=== PATIENT | male | born 2000 | race Caucasian/White ===

== ENCOUNTER 2018-06-29 19:42 | Inpatient (IN) ==
[~2018-06-29 19:42] MED LIST: SUCCINYLCHOLINE CHLORIDE 20 MG/ML 10 ML VIAL IV ONE
[2018-06-29] MEDS ORDERED: SODIUM CHLORIDE 0.9% 1000ML 500 ML IV ONE (20:02)
[2018-06-29] MEDS ORDERED: ONDANSETRON INJ 2 MG/ML 2 ML VIAL IV STA (20:02)
--- NOTE | 2018-06-29 20:25 | Emergency Department Note ---
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 The RN reports that the patient was found unresponsive on the floor by a friend in the basement of the bar [employer]. The RN states that the patient had to be drug ou to meet EMS. Per RN, there was no rep orted trauma or vomiting. History limited secondary to presumed alcohol intoxication. Home Medications Home Medications Medication Instructions Recorded Confirmed Type Unobtainable 06/29/18 06/29/18 History Allergies Allergy/AdvReac Type Severity Reaction Status Date / Time Unable to Assess Allergy Unverified 06/29/18 22:33 Past Med/Surg History Medical History No significant past medical history Surgical History No significant past surgical history Family History Other Family history non-contributory Social History Current Living Situation: Other Current Living Situation Comment: college student current occupational status: student Smoking Status: Unknown if ever smoked Hx Alcohol Use: Yes (unable to answer how much) Review of Systems Other (HPI and ROS are both limited secondary to alcohol intoxication. ) Physical Exam Vital Signs Vital Signs - 24 hr 06/29/18 19:49 06/29/18 19:50 06/29/18 19:51 Temperature 37.0 C Temperature Source Oral Sepsis Recent Fever Within 48 Hours No Sepsis New/Unexplained Change in Mental Status No Sepsis Action Taken by Nursing No Action Required Pulse Rate 112 H 109 H 107 H Pulse Rate [Left Apical] Pulse Rate from SpO2 Sensor 225 H 220 H 219 H Pulse Rhythm Regular Pulse Rhythm [Left Apical] Pulse Strength Normal Pulse Strength [Left Apical] Respiratory Rate 17 31 H 17 Respiratory Effort / Characteristics Non-Labored Respiratory Depth Normal Respiratory Pattern Regular Blood Pressure 123/60 123/60 Blood Pressure [Left Arm] Blood Pressure Mean 81 81 Blood Pressure Mean [Left Arm] Blood Pressure Position Lying Blood Pressure Position [Left Arm] Pulse Oximetry 95 95 92 Pulse Oximetry [Right Index Finger] Oxygen Delivery Method Room Air Oxygen Delivery Method [Right Index Finger] Oxygen Flow Rate Fraction of Inspired Oxygen SaO2/FiO2 Ratio 06/29/18 19:55 06/29/18 20:00 06/29/18 20:04 Temperature Temperature Source Sepsis Recent Fever Within 48 Hours Sepsis New/Unexplained Change in Mental Status Sepsis Action Taken by Nursing Pulse Rate 106 H 111 H 110 H Pulse Rate [Left Apical] Pulse Rate from SpO2 Sensor 216 H 111 H Pulse Rhythm Regular Pulse Rhythm [Left Apical] Pulse Strength Pulse Strength [Left Apical] Respiratory Rate 12 11 L 20 Respiratory Effort / Characteristics Respiratory Depth Respiratory Pattern Blood Pressure Blood Pressure [Left Arm] Blood Pressure Mean Blood Pressure Mean [Left Arm] Blood Pressure Position Blood Pressure Position [Left Arm] Pulse Oximetry 94 96 99 Pulse Oximetry [Right Index Finger] Oxygen Delivery Method Nasal Cannula Oxygen Delivery Method [Right Index Finger] Oxygen Flow Rate 3 Fraction of Inspired Oxygen SaO2/FiO2 Ratio 06/29/18 20:05 06/29/18 20:10 06/29/18 20:15 Temperature Temperature Source Sepsis Recent Fever Within 48 Hours Sepsis New/Unexplained Change in Mental Status Sepsis Action Taken by Nursing Pulse Rate 122 H 119 H 118 H Pulse Rate [Left Apical] Pulse Rate from SpO2 Sensor 123 H 119 H 118 H Pulse Rhythm Pulse Rhythm [Left Apical] Pulse Strength Pulse Strength [Left Apical] Respiratory Rate 8 L 15 25 H Respiratory Effort / Characteristics Respiratory Depth Respiratory Pattern Blood Pressure Blood Pressure [Left Arm] Blood Pressure Mean Blood Pressure Mean [Left Arm] Blood Pressure Position Blood Pressure Position [Left Arm] Pulse Oximetry 89 L 92 94 Pulse Oximetry [Right Index Finger] Oxygen Delivery Method Oxygen Delivery Method [Right Index Finger] Oxygen Flow Rate Fraction of Inspired Oxygen SaO2/FiO2 Ratio 06/29/18 20:20 06/29/18 20:25 06/29/18 20:26 Temperature Temperature Source Sepsis Recent Fever Within 48 Hours Sepsis New/Unexplained Change in Mental Status Sepsis Action Taken by Nursing Pulse Rate 104 H 102 H 102 H Pulse Rate [Left Apical] Pulse Rate from SpO2 Sensor 102 H 102 H 102 H Pulse Rhythm Pulse Rhythm [Left Apical] Pulse Strength Pulse Strength [Left Apical] Respiratory Rate 23 22 22 Respiratory Effort / Characteristics Respiratory Depth Respiratory Pattern Blood Pressure 132/86 Blood Pressure [Left Arm] Blood Pressure Mean 101 Blood Pressure Mean [Left Arm] Blood Pressure Position Blood Pressure Position [Left Arm] Pulse Oximetry 96 98 96 Pulse Oximetry [Right Index Finger] Oxygen Delivery Method Oxygen Delivery Method [Right Index Finger] Oxygen Flow Rate Fraction of Inspired Oxygen SaO2/FiO2 Ratio 06/29/18 20:30 06/29/18 20:35 06/29/18 20:40 Temperature Temperature Source Sepsis Recent Fever Within 48 Hours Sepsis New/Unexplained Change in Mental Status Sepsis Action Taken by Nursing Pulse Rate 97 H 93 H 93 H Pulse Rate [Left Apical] Pulse Rate from SpO2 Sensor 98 H 93 H 93 H Pulse Rhythm Pulse Rhythm [Left Apical] Pulse Strength Pulse Strength [Left Apical] Respiratory Rate 10 L 9 L 18 Respiratory Effort / Characteristics Respiratory Depth Respiratory Pattern Blood Pressure Blood Pressure [Left Arm] Blood Pressure Mean Blood Pressure Mean [Left Arm] Blood Pressure Position Blood Pressure Position [Left Arm] Pulse Oximetry 99 99 100 Pulse Oximetry [Right Index Finger] Oxygen Delivery Method Oxygen Delivery Method [Right Index Finger] Oxygen Flow Rate Fraction of Inspired Oxygen SaO2/FiO2 Ratio 06/29/18 20:45 06/29/18 20:50 06/29/18 20:57 Temperature Temperature Source Sepsis Recent Fever Within 48 Hours Sepsis New/Unexplained Change in Mental Status Sepsis Action Taken by Nursing Pulse Rate 93 H 97 H Pulse Rate [Left Apical] Pulse Rate from SpO2 Sensor 94 H 96 H 99 H Pulse Rhythm Pulse Rhythm [Left Apical] Pulse Strength Pulse Strength [Left Apical] Respiratory Rate 24 21 20 Respiratory Effort / Characteristics Respiratory Depth Respiratory Pattern Blood Pressure Blood Pressure [Left Arm] Blood Pressure Mean Blood Pressure Mean [Left Arm] Blood Pressure Position Blood Pressure Position [Left Arm] Pulse Oximetry 100 98 98 Pulse Oximetry [Right Index Finger] Oxygen Delivery Method Oxygen Delivery Method [Right Index Finger] Oxygen Flow Rate Fraction of Inspired Oxygen SaO2/FiO2 Ratio 06/29/18 20:58 06/29/18 21:00 06/29/18 21:05 Temperature Temperature Source Sepsis Recent Fever Within 48 Hours Sepsis New/Unexplained Change in Mental Status Sepsis Action Taken by Nursing Pulse Rate 103 H 106 H Pulse Rate [Left Apical] Pulse Rate from SpO2 Sensor 102 H 99 H 106 H Pulse Rhythm Pulse Rhythm [Left Apical] Pulse Strength Pulse Strength [Left Apical] Respiratory Rate 14 16 Respiratory Effort / Characteristics Respiratory Depth Respiratory Pattern Blood Pressure 126/89 124/94 Blood Pressure [Left Arm] Blood Pressure Mean 101 104 Blood Pressure Mean [Left Arm] Blood Pressure Position Blood Pressure Position [Left Arm] Pulse Oximetry 100 100 98 Pulse Oximetry [Right Index Finger] Oxygen Delivery Method Oxygen Delivery Method [Right Index Finger] Oxygen Flow Rate Fraction of Inspired Oxygen SaO2/FiO2 Ratio 06/29/18 21:10 06/29/18 21:15 06/29/18 21:20 Temperature Temperature Source Sepsis Recent Fever Within 48 Hours Sepsis New/Unexplained Change in Mental Status Sepsis Action Taken by Nursing Pulse Rate 88 96 H 94 H Pulse Rate [Left Apical] Pulse Rate from SpO2 Sensor 87 95 H 98 H Pulse Rhythm Pulse Rhythm [Left Apical] Pulse Strength Pulse Strength [Left Apical] Respiratory Rate 14 14 20 Respiratory Effort / Characteristics Respiratory Depth Respiratory Pattern Blood Pressure 148/111 H Blood Pressure [Left Arm] Blood Pressure Mean 123 Blood Pressure Mean [Left Arm] Blood Pressure Position Blood Pressure Position [Left Arm] Pulse Oximetry 100 100 100 Pulse Oximetry [Right Index Finger] Oxygen Delivery Method Oxygen Delivery Method [Right Index Finger] Oxygen Flow Rate Fraction of Inspired Oxygen SaO2/FiO2 Ratio 06/29/18 21:25 06/29/18 21:43 06/29/18 21:45 Temperature Temperature Source Sepsis Recent Fever Within 48 Hours Sepsis New/Unexplained Change in Mental Status Sepsis Action Taken by Nursing Pulse Rate 90 Pulse Rate [Left Apical] Pulse Rate from SpO2 Sensor 90 87 Pulse Rhythm Pulse Rhythm [Left Apical] Pulse Strength Pulse Strength [Left Apical] Respiratory Rate 14 13 14 Respiratory Effort / Characteristics Respiratory Depth Respiratory Pattern Blood Pressure 133/89 127/90 Blood Pressure [Left Arm] Blood Pressure Mean 103 102 Blood Pressure Mean [Left Arm] Blood Pressure Position Blood Pressure Position [Left Arm] Pulse Oximetry 100 100 Pulse Oximetry [Right Index Finger] Oxygen Delivery Method Oxygen Delivery Method [Right Index Finger] Oxygen Flow Rate Fraction of Inspired Oxygen SaO2/FiO2 Ratio 06/29/18 21:50 06/29/18 21:51 06/29/18 21:55 Temperature Temperature Source Sepsis Recent Fever Within 48 Hours Sepsis New/Unexplained Change in Mental Status Sepsis Action Taken by Nursing Pulse Rate Pulse Rate [Left Apical] Pulse Rate from SpO2 Sensor 90 87 Pulse Rhythm Pulse Rhythm [Left Apical] Pulse Strength Pulse Strength [Left Apical] Respiratory Rate 21 14 14 Respiratory Effort / Characteristics Respiratory Depth Respiratory Pattern Blood Pressure 128/91 127/92 Blood Pressure [Left Arm] Blood Pressure Mean 103 103 Blood Pressure Mean [Left Arm] Blood Pressure Position Blood Pressure Position [Left Arm] Pulse Oximetry 100 100 Pulse Oximetry [Right Index Finger] Oxygen Delivery Method Oxygen Delivery Method [Right Index Finger] Oxygen Flow Rate Fraction of Inspired Oxygen 60 SaO2/FiO2 Ratio 06/29/18 22:00 06/29/18 22:05 06/29/18 22:10 Temperature Temperature Source Sepsis Recent Fever Within 48 Hours Sepsis New/Unexplained Change in Mental Status Sepsis Action Taken by Nursing Pulse Rate 97 H Pulse Rate [Left Apical] Pulse Rate from SpO2 Sensor 88 88 99 H Pulse Rhythm Pulse Rhythm [Left Apical] Pulse Strength Pulse Strength [Left Apical] Respiratory Rate 14 14 19 Respiratory Effort / Characteristics Respiratory Depth Respiratory Pattern Blood Pressure 129/96 132/96 138/99 Blood Pressure [Left Arm] Blood Pressure Mean 107 108 112 Blood Pressure Mean [Left Arm] Blood Pressure Position Blood Pressure Position [Left Arm] Pulse Oximetry 100 100 100 Pulse Oximetry [Right Index Finger] Oxygen Delivery Method Oxygen Delivery Method [Right Index Finger] Oxygen Flow Rate Fraction of Inspired Oxygen SaO2/FiO2 Ratio 06/29/18 22:15 06/29/18 22:20 06/29/18 22:25 Temperature Temperature Source Sepsis Recent Fever Within 48 Hours Sepsis New/Unexplained Change in Mental Status Sepsis Action Taken by Nursing Pulse Rate 89 88 Pulse Rate [Left Apical] Pulse Rate from SpO2 Sensor 89 88 Pulse Rhythm Pulse Rhythm [Left Apical] Pulse Strength Pulse Strength [Left Apical] Respiratory Rate 14 14 Respiratory Effort / Characteristics Respiratory Depth Respiratory Pattern Blood Pressure 139/94 135/88 Blood Pressure [Left Arm] Blood Pressure Mean 109 103 Blood Pressure Mean [Left Arm] Blood Pressure Position Blood Pressure Position [Left Arm] Pulse Oximetry 100 100 Pulse Oximetry [Right Index Finger] Oxygen Delivery Method Mechanical Vent Oxygen Delivery Method [Right Index Finger] Oxygen Flow Rate Fraction of Inspired Oxygen SaO2/FiO2 Ratio 06/29/18 22:28 06/29/18 22:45 06/29/18 23:08 Temperature 37.6 C H Temperature Source Oral Sepsis Recent Fever Within 48 Hours Sepsis New/Unexplained Change in Mental Status Sepsis Action Taken by Nursing Pulse Rate Pulse Rate [Left Apical] 93 H Pulse Rate from SpO2 Sensor Pulse Rhythm Pulse Rhythm [Left Apical] Regular Pulse Strength Pulse Strength [Left Apical] Normal Respiratory Rate 18 Respiratory Effort / Characteristics Mechanically Ventilated Respiratory Depth Normal Respiratory Pattern Regular Blood Pressure Blood Pressure [Left Arm] 152/86 H Blood Pressure Mean Blood Pressure Mean [Left Arm] 108 Blood Pressure Position Blood Pressure Position [Left Arm] Lying Pulse Oximetry 100 Pulse Oximetry [Right Index Finger] 100 Oxygen Delivery Method Mechanical Vent Oxygen Delivery Method [Right Index Finger] Mechanical Vent Oxygen Flow Rate Fraction of Inspired Oxygen 60 60 SaO2/FiO2 Ratio 166 06/29/18 23:23 06/29/18 23:24 06/29/18 23:50 Temperature Temperature Source Sepsis Recent Fever Within 48 Hours Sepsis New/Unexplained Change in Mental Status Sepsis Action Taken by Nursing Pulse Rate 94 H 107 H Pulse Rate [Left Apical] Pulse Rate from SpO2 Sensor Pulse Rhythm Pulse Rhythm [Left Apical] Pulse Strength Pulse Strength [Left Apical] Respiratory Rate 16 Respiratory Effort / Characteristics Mechanically Ventilated Respiratory Depth Respiratory Pattern Blood Pressure Blood Pressure [Left Arm] Blood Pressure Mean Blood Pressure Mean [Left Arm] Blood Pressure Position Blood Pressure Position [Left Arm] Pulse Oximetry 100 Pulse Oximetry [Right Index Finger] Oxygen Delivery Method Mechanical Vent Oxygen Delivery Method [Right Index Finger] Oxygen Flow Rate Fraction of Inspired Oxygen 60 30 SaO2/FiO2 Ratio GENERAL: Patient is in no acute distress. HEENT: No acute trauma, normocephalic atraumatic, mucous membranes moist, no nasal congestion, no scleral icterus. No scalp hematomas. PERRL. NECK: No stridor, no adenopathy, no meningismus, trachea is midline. LUNGS: Clear to auscultation bilaterally, no wheeze, no rhonchi, breath sounds equal. HEART: Tachycardic with a regular rhythm, no murmurs. ABDOMEN: Soft, nontender, bowel sounds positive, no hernias, no peritonitis. EXTREMITIES: No cyanosis or edema, full range of motion of all the joints without pain or difficulty, no signs for acute trauma. NEUROLOGIC: Somnolent, moves all extremities, responds to painful stimuli. Appears significantly intoxicated. SKIN: No rash, no jaundice, no diaphoresis. Procedures Free Text Procedures Endotracheal Intubation Indication: Alcohol Intoxication The patient was on 100% oxygen via NRB prior to the procedure. Suction, airway equipment, RSI drugs, respiratory equipment, and appropriate personnel were prepared prior to the initiation of the procedure. A time out was taken. Inducti on was performed with 150 mg succinylcholine. After observing the clinical benefit of the medications, the airway was easily visualized utilizing a Harrison 2 Blade. A 7.5 size ETT tube was placed atraumatically to 24 cm using standard technique. The cuff inflated without signs of malfunction. There were bilateral breath sounds, positive colormetric change, no gastric sounds and post procedure pulse oximetry was 100%. There were no complications. Course 1957: The patient was evaluated in room B7, and a limited history and physical examination were performed. 2055: The patient was intubated. 2118: I discussed the patient's case with Dr. Nj - [facility] Hospitalist. He will evaluate the patient for further management. 2140: I spoke with the patient's emergency contact, Chary Villa, who stated she was the patient's aunt and that she would be contacting the patient's mother. 2145: Dr. Nj discussed the patient's case with the ICU. They are aware and agreeable with the treatment plan. 2147: I discussed the patient's case with the patient's mother, Bambi. She is 4 hours away and is on her way. Administered Medications Potassium Chloride/Sodium Chloride (Normal Saline W/20 Meq Kcl) 20 meq in 1,000 mls @ 150 mls/hr IV .Q6H40M [facility] Stop: 07/29/18 21:44 Last Admin: 06/29/18 23:34 Dose: 150 mls/hr Documented by: [id number] Discontinued Medications Sodium Chloride (Nss 1000ml) 500 mls @ 999 mls/hr IV .Q31M ONE Stop: 06/29/18 20:32 Last Infusion: 06/29/18 23:00 Dose: 0 mls/hr Documented by: [id number] Admin: 06/29/18 20:25 Dose: 999 mls/hr Documented by: [id number] Propofol (Diprivan) 1,000 mg in 100 mls @ 0 mls/hr IV .Q0M JUAN; Protocol Stop: 07/02/18 22:29 Last Titration: 06/30/18 00:00 Dose: 30 mcg/kg/min, 16.2 mls/hr Documented by: [id number] Admin: 06/29/18 22:28 Dose: 20 mcg/kg/min, 10.8 mls/hr Documented by: [id number] Cosigned by: [id number] Miscellaneous () Confirm Administered Dose 1 ea .ROUTE .STK-MED ONE Stop: 06/29/18 20:57 Last Admin: 06/29/18 21:51 Dose: 1 ea Documented by: [id number] Ondansetron HCl (Zofran) 4 mg IV NOW STA Stop: 06/29/18 20:03 Last Admin: 06/29/18 20:25 Dose: 4 mg Documented by: [id number] Propofol (Diprivan) Confirm Administered Dose 200 mg IV .STK-MED ONE Stop: 06/29/18 22:13 Last Admin: 06/29/18 22:28 Dose: Not Given Documented by: [id number] Propofol (Diprivan) Confirm Administered Dose 1,000 mg IV .STK-MED ONE Stop: 06/29/18 22:13 Last Admin: 06/29/18 23:10 Dose: Not Given Documented by: [id number] Propofol (Diprivan) 40 mg IV NOW STA Stop: 06/29/18 22:21 Last Admin: 06/29/18 22:28 Dose: 40 mg Documented by: [id number] Cosigned by: [id number] Succinylcholine Chloride (Quelicin) 150 mg IV NOW STA Stop: 06/29/18 21:10 Last Admin: 06/29/18 21:51 Dose: 150 mg Documented by: [id number] Medical Decision Making Differential Diagnosis Differential diagnosis includes: alcohol overdose, alcohol abuse, aspiration, drug abuse, head trauma, dehydration, and electrolyte imbalance. Medical Records Attestation: I reviewed the patient's medical records. Home Medications Current Medication List: was personally reviewed by me Laboratory Data Attestation: I reviewed the patient's lab results. Result diagrams: 06/29/18 20:13 06/29/18 20:13 Lab Results 06/29/18 06/29/18 06/29/18 Range/Units 20:13 20:13 20:13 WBC 7.89 (4.8-10.8) K/uL RBC 4.85 (4.7-6.1) M/uL Hgb 15.0 (14.0-18.0) g/dL Hct 41.8 L (42-52) % MCV 86.2 (80-100) fL MCH 30.9 (25-34) pg MCHC 35.9 (32-36) g/dL RDW Std Deviation 40.3 (36.4-46.3) fL RDW Coeff of Sumanth 12.8 (11.5-14.5) % Plt Count 232 (130-400) K/uL MPV 9.7 (7.4-10.4) fL Sodium 141 (136-145) mmol/L Potassium 3.5 (3.5-5.1) mmol/L Chloride 112 H (98-107) mmol/L Carbon Dioxide 23 (21-32) mmol/L Anion Gap 6.0 (3-11) BUN 12 (7-18) mg/dl Creatinine 0.99 (0.6-1.4) mg/dl Est Cr Clr Drug Dosing 134.3 ml/min Est GFR ( Amer) 126.5 Est GFR (Non-Af Amer) 109.2 BUN/Creatinine Ratio 12.4 (10-20) Glucose 125 H (70-99) mg/dl POC Glucose (70-99) Calcium 8.9 (8.5-10.1) mg/dl Total Bilirubin 0.5 (0.2-1) mg/dl AST 20 (15-37) U/L ALT 29 (12-78) U/L Alkaline Phosphatase 69 (45-117) U/L Total Protein 8.0 (6.4-8.2) gm/dl Albumin 4.2 (3.4-5.0) gm/dl Globulin 3.8 (2.5-4.0) gm/dl Albumin/Globulin Ratio 1.1 (0.9-2) Urine Opiates Screen (Neg) Ur Methadone, Qual (Neg) Urine Barbiturates (Neg) Ur Phencyclidine (PCP) (Neg) U Amphetamin/Meth Scrn (Neg) MDMA (Ecstasy) Screen (Neg) U Benzodiazepines Scrn (Neg) Ur Cocaine Metabolite (Neg) U Marijuana (THC) Screen (Neg) Ethyl Alcohol mg/dL 456.0 H (0-3) mg/dl 06/29/18 06/29/18 Range/Units 21:30 23:36 WBC (4.8-10.8) K/uL RBC (4.7-6.1) M/uL Hgb (14.0-18.0) g/dL Hct (42-52) % MCV (80-100) fL MCH (25-34) pg MCHC (32-36) g/dL RDW Std Deviation (36.4-46.3) fL RDW Coeff of Sumanth (11.5-14.5) % Plt Count (130-400) K/uL MPV (7.4-10.4) fL Sodium (136-145) mmol/L Potassium (3.5-5.1) mmol/L Chloride (98-107) mmol/L Carbon Dioxide (21-32) mmol/L Anion Gap (3-11) BUN (7-18) mg/dl Creatinine (0.6-1.4) mg/dl Est Cr Clr Drug Dosing ml/min Est GFR ( Amer) Est GFR (Non-Af Amer) BUN/Creatinine Ratio (10-20) Glucose (70-99) mg/dl POC Glucose 110 H (70-99) Calcium (8.5-10.1) mg/dl Total Bilirubin (0.2-1) mg/dl AST (15-37) U/L ALT (12-78) U/L Alkaline Phosphatase (45-117) U/L Total Protein (6.4-8.2) gm/dl Albumin (3.4-5.0) gm/dl Globulin (2.5-4.0) gm/dl Albumin/Globulin Ratio (0.9-2) Urine Opiates Screen Neg (Neg) Ur Methadone, Qual Neg (Neg) Urine Barbiturates Neg (Neg) Ur Phencyclidine (PCP) Neg (Neg) U Amphetamin/Meth Scrn Neg (Neg) MDMA (Ecstasy) Screen Neg (Neg) U Benzodiazepines Scrn Neg (Neg) Ur Cocaine Metabolite Neg (Neg) U Marijuana (THC) Screen Neg (Neg) Ethyl Alcohol mg/dL (0-3) mg/dl Imaging Data Radiologist's Impression: Radiology results as stated below per my review and the radiologist's interpretation: XR chest 1V portable CLINICAL HISTORY: Respiratory failure COMPARISON STUDY: None FINDINGS: There is a nasogastric tube within the stomach. There is an endotracheal tube 32 mm above the rashaad. The heart is normal in size. There is no focal pulmonary consolidation. There are no pleural effusions.[ IMPRESSION: 1. Endotracheal tube 32 mm above the rashaad 2. Nasogastric tube in stomach 3. No evidence of focal pulmonary consolidation Electronically signed by: Konrad Hoover M.D. 06/29/2018 9:[address] head/brain wo con CLINICAL HISTORY: confusion PATIENT FOUND UNRESPONSIVE. COMPARISON STUDY: No previous studies for comparison. TECHNIQUE: Axial CT of the brain is performed from the vertex to the skull base. IV contrast was not administered for this examination. A dose lowering technique was utilized adhering to the principles of ALARA. CT DOSE: 614.27 mGy.cm FINDINGS: No intra or extra-axial mass lesions are visualized. There is no CT evidence of acute cortical infarction. There is no evidence of midline shift. There is no acute hemorrhage. No calvarial fractures are visualized. There are patchy white matter hypodensities likely on a small vessel basis. There is no evidence of pathologic ventricular dilatation. There is a right maxilla sinus inflammatory polyp/retention cyst. IMPRESSION: No acute intracranial findings Electronically signed by: Konrad Hoover M.D. 06/29/2018 9:43 PM Blood Pressure Blood Pressure Findings: Normal blood pressure Blood Pressure Disposition: did not require urgent referral MDM Narrative There is no leukocytosis or concerning anemia. No significant electrolyte abnormality, kidney failure or hepatitis. Urine tox was negative. Alcohol level returned quite elevated at 456. Brain CT shows no acute bleed or mass- effect. The patient presented for an alcohol overdose. Initially, he was responsive to deep painful stimuli. Over a very short timeframe though, he became more sedate, he required nasal cannula O2 supplementation because of hypoxia, he no longer would respond to deep painful stimuli and I could no longer find a gag reflex. He was felt in need of intubation to protect his airway and to prevent hypoxia. Patient was intubated as noted above, there were no complications. Eventually, a propofol drip was started. Chest film was done showing the endotracheal tube to be in good position. The lungs were clear. An orogastric tube was placed. To monitor urine output, a Adames catheter was placed. I did speak to the patient's aunt and then to the patient's mother over the phone. They are aware of the situation, the mother is on the way to this hospital, she lives in [place]. The patient is in need of a hospital stay, he will be admitted to the ICU. I did speak to the on-call hospitalist as well as case management. The ICU is awaiting the patient's arrival. His presentation appears to be consistent with an alcohol overdose. Impression & Plan Alcohol overdose, Respiratory failure Critical Care Time I have personally spent 45 minutes of critical care time in the direct management of this patient. This includes bedside care, interpretation of diagnostic studies, and testing, discussion with consultants, patient, and family members, and other required patient management activities. These 45 minutes is in excess of all separately billable procedures. Critical Care Time: Yes Total Critical Care Time: 45 Discharge Plan Visit Data *Final* Discharge Date/Time: 06/29/18 22:25 Chief Complaint: Alcohol Intoxication Stated Complaint: ETOH ED Provider: Elpidio Ramirez Discharge Problem: Alcohol overdose, Respiratory failure Patient Disposition: Admitted As Inpatient Discharge Instructions Interventions: ED Discharge Assessment Last Done: 06/29/18 22:25 Discharge Problem: Alcohol overdose Qualifiers: Encounter type: initial encounter Injury intent: undetermined intent Qualified Code(s): T51.94XA - Toxic effect of unspecified alcohol, undetermined, initial encounter Respiratory failure Qualifiers: Chronicity: acute Respiratory failure complication: hypoxia Qualified Code(s): J96.01 - Acute respiratory failure with hypoxia The scribe's documentation has been prepared under my direction and personally reviewed by me in its entirety. I confirm that the note above accurately reflects all work, treatment, procedures, and medical decision making performed by me.
[2018-06-29 20:42] LABS: Albumin Level 4.2 gm/dl (3.4-5.0); BUN Creatinine Ratio 12.4 (10-20); Calcium 8.9 mg/dl (8.5-10.1); Creatinine Clr Calc Pharmacy 134.3 ml/min; Est GFR (African American) 126.5; Est GFR (Non-African American) 109.2; Potassium 3.5 mmol/L (3.5-5.1)
[2018-06-29 20:45] LABS: Albumin Globulin Ratio 1.1 (0.9-2); Bilirubin,Total 0.5 mg/dl (0.2-1); Globulin 3.8 gm/dl (2.5-4.0)
[2018-06-29] MEDS ORDERED: RAPID SEQUENCE INDUCTION BAG ONE (20:56)
[2018-06-29] MEDS ORDERED: SUCCINYLCHOLINE CHLORIDE 20 MG/ML 10 ML VIAL IV STA (21:09)
[2018-06-29 21:20] LABS: Hematocrit (blood only) 41.8 % (42-52); Mean Corpuscular Hgb Conc 35.9 g/dL (32-36); Mean Corpuscular Volume 86.2 fL (80-100); Mean Platelet Volume 9.7 fL (7.4-10.4); Platelet Count 232 K/uL (130-400); RDW Coefficient of Variation 12.8 % (11.5-14.5); RDW Standard Deviation 40.3 fL (36.4-46.3); Red Blood Count 4.85 M/uL (4.7-6.1); White Blood Count 7.89 K/uL (4.8-10.8)
--- NOTE | 2018-06-29 21:31 | XRay Report ---
XR chest 1V portable CLINICAL HISTORY: Respiratory failure COMPARISON STUDY: None FINDINGS: There is a nasogastric tube within the stomach. There is an endotracheal tube 32 mm above t he rashaad. The heart is normal in size. There is no focal pulmonary consolidation. There are no pleur al effusions.[ IMPRESSION: 1. Endotracheal tube 32 mm above the rashaad 2. Nasogastric tube in stomach 3. No evidence of focal pulmonary consolidation Electronically signed by: Konrad Hoover M.D. 06/29/2018 9:30 PM
--- NOTE | 2018-06-29 21:40 | History & Physical Report ---
Date of Service June 29, 2018 Assessment & Plan (1) Admitted to intensive care unit: Patient was electively intubated in the ED due to concerns regarding his ability to maintain his airway due to severe alcohol intoxication/overdose. Admit to the intensive care unit. CBC with differential, chemistry profile reviewed and normal. Urine drug screen negative. Alcohol level 456, with normal range 0-3. Ventilator settings AC 16/5 100/60%/PEEP 5. Check ABG upon arrival to ICU. Nasogastric tube inserted maintained. Propofol for IV sedation. NSS + KCl 20 mEq at 150 mL's per hour. Famotidine 20 mg IV every 12 hours. Zofran 4 mg IV every 6 hours as needed. Serial CBC with differential, chemistry profile, magnesium level, ABG. Consult [employer] senior specialist Dr. Andrea. Present on Admission?: Yes (2) Airway compromise: As above. Present on Admission?: Yes (3) Alcohol overdose: Initial alcohol level noted to be 456.0. Repeat in a.m. Present on Admission?: Yes History of Present Illness Chief Complaint: The patient presented to the emergency department via EMS after being found unresponsive by a friend in the basement of the bar [employer]. The patient himself as noted is unresponsive, and therefore his HPI and review of systems is severely limited to that supplied by his friend and EMS. Primary Care Provider: NO PCP As noted above, the patient presented to the emergency department via EMS after being found unresponsive in a bar. His alcohol level was 456, and as it became apparent that the patient was not going to be able to protect his airway, he was electively intubated by Dr. Ramirez in the ED for airway protection. Allergies Allergy/AdvReac Type Severity Reaction Status Date / Time Unable to Assess Allergy Unverified 06/29/18 22:33 Home Medications Home Medications Medication Instructions Recorded Confirmed Type Unobtainable 06/29/18 06/29/18 History Past Med/Surg History Medical History No significant past medical history Surgical History No significant past surgical history Family History Other Family history non-contributory Social History current occupational status: student Smoking Status: Unknown if ever smoked Hx Alcohol Use: Yes Review of Systems Review of Systems: Limited due to patient's unresponsive state Physical Exam Physical Exam: The patient is presently intubated and nonresponsive. Normo cephalic and atraumatic, lying in bed. HEENT--PERRL, EOMI, mucous membranes and oropharynx dry. Neck-- No JVD. No bruits. Thyroid normal, trachea midline, no adenopathy. Heart--normal S1 and S2. No murmurs, rubs or gallops. Lungs--few coarse breath sounds bilaterally. On ventilator. Abdomen--normal bowel sounds and soft. Nontender. Nondistended, no hernias or masses, no organomegaly. Extremities--no cyanosis or clubbing. No edema. There are good distal pulses b/l. Dermatologic--normal skin turgor, normal color, no abnormal lymph nodes, no rash. Neurologic--deferred. Rheumatologic-deferred Psychiatric--deferred Results & Data Vital Signs (Past 12 Hours) Vital Signs Temp Pulse Resp BP Pulse Ox 06/29/18 20:04 110 H 20 99 06/29/18 19:50 37.0 C 102 H 12 123/60 95 Laboratory Results Laboratory Results WBC 7.89 K/uL (4.8-10.8) 06/29/18 20:13 RBC 4.85 M/uL (4.7-6.1) 06/29/18 20:13 Hgb 15.0 g/dL (14.0-18.0) 06/29/18 20:13 Hct 41.8 % (42-52) L 06/29/18 20:13 MCV 86.2 fL (80-100) 06/29/18 20:13 MCH 30.9 pg (25-34) 06/29/18 20:13 MCHC 35.9 g/dL (32-36) 06/29/18 20:13 RDW Std Deviation 40.3 fL (36.4-46.3) 06/29/18 20:13 RDW Coeff of Sumanth 12.8 % (11.5-14.5) 06/29/18 20:13 Plt Count 232 K/uL (130-400) 06/29/18 20:13 MPV 9.7 fL (7.4-10.4) 06/29/18 20:13 Sodium 141 mmol/L (136-145) 06/29/18 20:13 Potassium 3.5 mmol/L (3.5-5.1) 06/29/18 20:13 Chloride 112 mmol/L (98-107) H 06/29/18 20:13 Carbon Dioxide 23 mmol/L (21-32) 06/29/18 20:13 Anion Gap 6.0 (3-11) 06/29/18 20:13 BUN 12 mg/dl (7-18) 06/29/18 20:13 Creatinine 0.99 mg/dl (0.6-1.4) 06/29/18 20:13 Est Cr Clr Drug Dosing 134.3 ml/min 06/29/18 20:13 Est GFR ( Amer) 126.5 06/29/18 20:13 Est GFR (Non-Af Amer) 109.2 06/29/18 20:13 BUN/Creatinine Ratio 12.4 (10-20) 06/29/18 20:13 Glucose 125 mg/dl (70-99) H 06/29/18 20:13 Calcium 8.9 mg/dl (8.5-10.1) 06/29/18 20:13 Total Bilirubin 0.5 mg/dl (0.2-1) 06/29/18 20:13 AST 20 U/L (15-37) 06/29/18 20:13 ALT 29 U/L (12-78) 06/29/18 20:13 Alkaline Phosphatase 69 U/L (45-117) 06/29/18 20:13 Total Protein 8.0 gm/dl (6.4-8.2) 06/29/18 20:13 Albumin 4.2 gm/dl (3.4-5.0) 06/29/18 20:13 Globulin 3.8 gm/dl (2.5-4.0) 06/29/18 20:13 Albumin/Globulin Ratio 1.1 (0.9-2) 06/29/18 20:13 Urine Opiates Screen Neg (Neg) 06/29/18 21:30 Ur Methadone, Qual Neg (Neg) 06/29/18 21:30 Urine Barbiturates Neg (Neg) 06/29/18 21:30 Ur Phencyclidine (PCP) Neg (Neg) 06/29/18 21:30 U Amphetamin/Meth Scrn Neg (Neg) 06/29/18 21:30 MDMA (Ecstasy) Screen Neg (Neg) 06/29/18 21:30 U Benzodiazepines Scrn Neg (Neg) 06/29/18 21:30 Ur Cocaine Metabolite Neg (Neg) 06/29/18 21:30 U Marijuana (THC) Screen Neg (Neg) 06/29/18 21:30 Ethyl Alcohol mg/dL 456.0 mg/dl (0-3) H 06/29/18 20:13 Diagnostic Findings [facility], [place] [phone] CT Scan Report Patient: Karlene REINA Date: 06/29/18 MR#: [id number]: 4 [facility] Acct ID:[id number]: Date: 2000[facility] Zip: [place] [address] Age: 18Location: ED Sex: M Room/Bed: Att Phy: Diagnosis: ETOH Yolanda Phy: PCP,NO Service Date: 06/29/18 Fam Phy: Interpreting Phy: Konrad Hoover MD Admit Phy: Ordering Phy: Elpidio Ramirez M.D. cc: ~ CT head/brain wo con CLINICAL HISTORY: confusion PATIENT FOUND UNRESPONSIVE. COMPARISON STUDY: No previous studies for comparison. TECHNIQUE: Axial CT of the brain is performed from the vertex to the skull base. IV contrast was not administered for this examination. A dose lowering technique was utilized adhering to the principles of ALARA. CT DOSE: 614.27 mGy.cm FINDINGS: No intra or extra-axial mass lesions are visualized. There is no CT evidence of acute cortical infarction. There is no evidence of midline shift. There is no acute hemorrhage. No calvarial fractures are visualized. There are patchy white matter hypodensities likely on a small vessel basis. There is no evidence of pathologic ventricular dilatation. There is a right maxilla sinus inflammatory polyp/retention cyst. IMPRESSION: No acute intracranial findings Electronically signed by: Konrad Hoover M.D. 06/29/2018 9:43 PM Dictated: 06/29/182141 Transcribed: 06/29/182141 [phone] XRay Report Patient: Hilton REINAit Date: 06/29/18 MR#: [id number]: Timothy4 OSBALDO ALAS Acct ID:[id number]: Date: 2000City Zip: [place] [address] Age: 18Location: ED Sex: M Room/Bed: Att Phy: Diagnosis: ETOH Yolanda Phy: PCP,NO Service Date: 06/29/18 Fam Phy: Interpreting Phy: Konrad Hoover MD Admit Phy: Ordering Phy: Elpidio Ramirez M.D. cc: ~ XR chest 1V portable CLINICAL HISTORY: Respiratory failure COMPARISON STUDY: None FINDINGS: There is a nasogastric tube within the stomach. There is an endotracheal tube 32 mm above the rashaad. The heart is normal in size. There is no focal pulmonary consolidation. There are no pleural effusions.[ IMPRESSION: 1. Endotracheal tube 32 mm above the rashaad 2. Nasogastric tube in stomach 3. No evidence of focal pulmonary consolidation Electronically signed by: Konrad Hoover M.D. 06/29/2018 9:30 PM Dictated: 06/29/182127 Transcribed: 06/29/182127 Code Status & VTE Plan Code Status Full code VTE Prophylaxis Plan VTE Prophylaxis will be ordered: Yes Critical Care Time Total critical care time was 45 minutes Critical Care Time: Yes Total Critical Care Time: 45 (1) Alcohol overdose Encounter type: initial encounter Injury intent: undetermined intent Qualified Code(s): T51.94XA - Toxic effect of unspecified alcohol, undetermined, initial encounter
[2018-06-29] MEDS ORDERED: NSS + 20MEQ KCL 20 MEQ/1,000 ML BAG IV SCH (21:45)
--- NOTE | 2018-06-29 21:45 | CT Scan Report ---
CT head/brain wo con CLINICAL HISTORY: confusion PATIENT FOUND UNRESPONSIVE. COMPARISON STUDY: No previous studies for comparison. TECHNIQUE: Axial CT of the brain is performed from the vertex to the skull base. IV contrast was not administered for this examination. A dose lowering technique was utilized adhering to the principles of ALARA. CT DOSE: 614.27 mGy.cm FINDINGS: No intra or extra-axial mass lesions are visualized. There is no CT evidence of acute cortical infarc tion. There is no evidence of midline shift. There is no acute hemorrhage. No calvarial fractures ar e visualized. There are patchy white matter hypodensities likely on a small vessel basis. There is no evidence of pathologic ventricular dilatation. There is a right maxilla sinus inflammatory polyp/retention cyst. IMPRESSION: No acute intracranial findings Electronically signed by: Konrad Hoover M.D. 06/29/2018 9:43 PM
[2018-06-29] MEDS ORDERED: PROPOFOL IV EMULSION 10 MG/ML 100 ML VIAL IV ONE (22:12)
[2018-06-29] MEDS ORDERED: PROPOFOL IV EMULSION 10 MG/ML 20 ML VIAL IV ONE (22:12)
[2018-06-29] MEDS ORDERED: PROPOFOL IV EMULSION 10 MG/ML 20 ML VIAL IV STA (22:20)
[2018-06-29] MEDS ORDERED: PROPOFOL 1,000 MG/100 ML VIAL IV SCH (22:30)
[2018-06-29 22:33] LABS: Amphetamines+Metham, Urine Neg (Neg); Barbiturates, Urine Neg (Neg); Benzodiazepine, Urine Neg (Neg); Cocaine, Urine Neg (Neg); MDMA (Ecstacy), Urine Neg (Neg); Methadone, Urine Neg (Neg); Opiate, Urine Neg (Neg); Phencyclidine, Urine Neg (Neg)
[2018-06-29] MEDS ORDERED: ICU PROTOCOL FOR HYPERGLYCEMIA PRN (23:08)
[2018-06-29] MEDS ORDERED: ALBUT/IPRATROP 3MG/0.5MG NEB 3 ML VIAL INH PRN (23:08)
--- NOTE | 2018-06-29 23:11 | Critical Care Consultation ---
Date of Consultation June 29, 2018 Assessment & Plan (1) Admitted to intensive care unit: Reason Critically Ill: 18-year-old male with acute alcohol overdose requiring endotracheal intubation for airway protection in the setting of respiratory depression. NEURO - * CAM ICU: Unable to assess secondary to current state of sedation. * Alcohol overdose/Unconscious State: * Initial EtOH in the ED of 456.0 mg/dL --> Will recheck to assess for clearance prior to lightening sedation for planned early extubation. * CT Head WNL. * UDS w/o other significant findings. * No focal neurological deficits appreciated on exam, however limited by EtOH/Sedation. CARDIAC/VASCULAR - * No known h/o Cardiovascular disease. * EKG: NSR @89bpm w/o ST/T-wave changes. QTc 445ms. * Monitor on telemetry. RESPIRATORY - * Acute Respiratory Failure requiring endotracheal intubation: * 2/2 respiratory depression from EtOH. * No infiltrative changes noted on post intubation CXR. * No need for Abx coverage at this point. * Will repeat AM CXR p/t extubation for any changes. * AM ABG w/ ABGs as needed for any acute changes. GI/NUTRITION - * NPO * OG in place * Prophylaxis: Famotidine RENAL/LYTES - * No significant electrolyte abnormalities appreciated. * Will trend - replace appropriately. * IVF: NSS+20mEq KCl@150mL/hr * Will change to Normosol after repeat BMP. - * Adames in place - Strict I&Os. ENDO - * No h/o DM or Thyroid Dz * BSGs per unit protocol. ISS --> gtt per unit policy. HEME - * Stable H&H ID - * No c/o infectious contribution at this time. LINES/IV ACCESS - * PIVs x2 * Adames * ET Tube DVT PROPHYLAXIS - * Lovenox * SCDs I have personally spent 35 minutes of critical care time in the direct management of this patient. This is a life/limb threatening event. This includes time spent evaluating patient, direct bedside care, chart review, placing orders, interpretation of diagnostic studies, discussion with consultants, patient, and family members, as well as other required patient management activities. This time is exclusive of all separately billable procedures, and teaching time and separate from and in addition to any other critical care service time. Thank you for allowing us to participate in the care of this patient. Please refer to my attending physician's documentation for any further recommendations. (2) Airway compromise: (3) Alcohol overdose: (4) Respiratory failure: (5) No significant past medical history: Supervising Physician Co-Signing Physician Notes I have personally evaluated and examined this patient. I agree with assessment and plan of Stephen Gomez PA-C. Severe alcohol intoxication leading to profound altered mental status requiring intubation to protect from aspiration. History of Present Illness Attending Physician: Bubba Nj MD History of present illness limited secondary to patient's current state of alcohol intoxication with need for endotracheal intubation for airway protect ion. 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 Apparently, he was found unconscious at a bar where he was out with friends. EMS was contacted and the patient was subsequently brought to the emergency department for acute alcohol intoxication. Throughout stay in the emergency department, the patient became more obtunded and required emergent endotracheal intubation. Patient's labs were otherwise unremarkable except for a medical alcohol of 456. Patient was intubated with succinylcholine alone. He was started on a propofol drip for sedation. Upon arrival in the ICU, the patient is pleasantly sedated. Unable to contribute to conversation. Allergies Allergy/AdvReac Type Severity Reaction Status Date / Time No Known Allergies Allergy Unverified 06/30/18 02:46 Home Medications Home Medications Medication Instructions Recorded Confirmed Type Unobtainable 06/29/18 06/29/18 History ondansetron HCl [Zofran] 4 mg PO ONCE PRN 4 Days #4 tab 06/30/18 Rx Patient History Medical History No significant past medical history Surgical History No significant past surgical history Family History Other Family history non-contributory Social History Communication Ability: Unable Current Living Situation: Other Current Living Situation Comment: college student current occupational status: student Smoking Status: Unknown if ever smoked Hx Alcohol Use: Yes (unable to answer how much) Review of Systems Review of Systems: Unable to assess secondary to current state of alcohol intoxication, sedation, and endotracheal intubation. Physical Exam Physical Exam: VITAL SIGNS - Vital signs and nursing notes were reviewed. GENERAL - 18-year-old male appearing his stated age who is in no acute distress. Intubated and sedated. SKIN - Without rashes. No outward signs of trauma. HEAD - NC/AT. EYES - PERRL with EOMI bilaterally. Sclera anicteric. Palpebral conjunctiva pink and moist with no injection noted. EARS - No deformities of external structures noted on gross examination bilaterally. NOSE - Midline and without cyanosis. Dried epistaxis noted to the nares bilaterally. MOUTH/OROPHARYNX - Endotracheally intubated. Without perioral cyanosis. Buccal mucosa pink and moist and without leukoplakia. Good dentition noted. NECK - Neck with FROM. Supple to palpation. No lymphadenopathy noted. No nuchal rigidity. LUNGS - Chest wall symmetric without accessory muscle use, intercostals retractions, or central cyanosis. Normal vesicular breath sounds CTA B/L. No wheezes, rales, or rhonchi appreciated. CARDIAC - RRR with S1/S2. No murmur, rubs, or gallops appreciated. ABDOMEN - Abdominal contour flat without pulsations or visible masses. BS normoactive all four quadrants. No tenderness, palpable masses, hepatosplenomegaly, or ascites noted. EXTREMITIES - No clubbing or peripheral cyanosis. No pretibial edema present. +3/5 radial, posterior tibial, and dorsalis pedis pulses palpated throughout. NEUROLOGIC - Cranial nerves II through XII grossly intact. Unable to fully assess secondary to current state. Results & Data Vital Signs (Past 12 Hours) Vital Signs Temp Pulse Resp BP Pulse Ox 06/29/18 22:20 88 14 135/88 100 06/29/18 22:15 89 14 139/94 100 06/29/18 22:10 97 H 19 138/99 100 06/29/18 22:05 14 132/96 100 06/29/18 22:00 14 129/96 100 06/29/18 21:55 14 127/92 100 06/29/18 21:51 14 06/29/18 21:50 21 128/91 100 06/29/18 21:45 14 127/90 100 06/29/18 21:43 13 06/29/18 21:25 90 14 133/89 100 06/29/18 21:20 94 H 20 100 06/29/18 21:15 96 H 14 148/111 H 100 06/29/18 21:10 88 14 100 06/29/18 21:05 106 H 16 98 06/29/18 21:00 124/94 100 06/29/18 20:58 103 H 14 126/89 100 06/29/18 20:57 20 98 06/29/18 20:50 97 H 21 98 06/29/18 20:45 93 H 24 100 06/29/18 20:40 93 H 18 100 06/29/18 20:35 93 H 9 L 99 06/29/18 20:30 97 H 10 L 99 06/29/18 20:26 102 H 22 132/86 96 06/29/18 20:25 102 H 22 98 06/29/18 20:20 104 H 23 96 06/29/18 20:15 118 H 25 H 94 06/29/18 20:10 119 H 15 92 06/29/18 20:05 122 H 8 L 89 L 06/29/18 20:04 110 H 20 99 06/29/18 20:00 111 H 11 L 96 06/29/18 19:55 106 H 12 94 06/29/18 19:51 107 H 17 123/60 92 06/29/18 19:50 37.0 C 109 H 31 H 123/60 95 06/29/18 19:49 112 H 17 95 (1) Alcohol overdose Encounter type: initial encounter Injury intent: undetermined intent Qualified Code(s): T51.94XA - Toxic effect of unspecified alcohol, undetermined, initial encounter (2) Respiratory failure Chronicity: acute Respiratory failure complication: hypoxia Qualified Code(s): J96.01 - Acute respiratory failure with hypoxia
[2018-06-30] MEDS: PROPOFOL 1,000 MG/100 ML VIAL IV SCH ×3 (00:28→07:13)
[2018-06-30] MEDS: FAMOTIDINE 20 MG in SYRINGE 3 ML IV SCH ×2 (00:43→08:51)
[2018-06-30 01:27] LABS: BUN Creatinine Ratio 11.1 (10-20); Calcium 7.7 mg/dl (8.5-10.1); Creatinine Clr Calc Pharmacy 144.8 ml/min; Est GFR (African American) 146.1; Magnesium 2.4 mg/dl (1.8-2.4); Potassium 4.2 mmol/L (3.5-5.1)
[2018-06-30] MEDS: NORMOSOL-R 1,000 ML IV SCH ×2 (03:21→13:29)
[2018-06-30 04:35] LABS: Hematocrit (blood only) 41.3 % (42-52); Hemoglobin 14.5 g/dL (14.0-18.0); Immature Granulocytes # (auto) 0.01 K/uL (0.00-0.02); Immature Granulocytes % (auto) 0.2 %; Lymphocytes # (auto) 1.87 K/uL (1.2-3.4); Lymphocytes % (auto) 36.7 %; Mean Corpuscular Hgb Conc 35.1 g/dL (32-36); Mean Corpuscular Volume 86.9 fL (80-100); Mean Platelet Volume 9.4 fL (7.4-10.4); Monocytes # (auto) 0.27 K/uL (0.11-0.59); Monocytes % (auto) 5.3 %; Neutrophils # (auto) 2.95 K/uL (1.4-6.5); Neutrophils % (auto) 57.8 %; Platelet Count 216 K/uL (130-400); RDW Standard Deviation 41.3 fL (36.4-46.3); Red Blood Count 4.75 M/uL (4.7-6.1)
[2018-06-30 04:53] LABS: INR 1.1 (0.9-1.1); Partial Thromboplastin Ratio 0.9; Partial Thromboplastin Time 25.1 Seconds (21.0-31.0); Prothrombin Time 11.5 Seconds (9.0-12.0)
[2018-06-30 05:05] LABS: Alanine Aminotransferase 25 U/L (12-78); Albumin Level 3.8 gm/dl (3.4-5.0); Aspartate Aminotransferase 20 U/L (15-37); BUN Creatinine Ratio 9.2 (10-20); Blood Urea Nitrogen 8 mg/dl (7-18); Carbon Dioxide 24 mmol/L (21-32); Chloride 116 mmol/L (98-107); Creatinine Clr Calc Pharmacy 138.3 ml/min; Est GFR (African American) 143.3; Est GFR (Non-African American) 123.7; Glucose 118 mg/dl (70-99); Magnesium 2.4 mg/dl (1.8-2.4); Potassium 4.1 mmol/L (3.5-5.1); Sodium 144 mmol/L (136-145)
[2018-06-30 05:09] LABS: Alkaline Phosphatase 59 U/L (45-117); Bilirubin Direct < 0.1 mg/dl (0-0.2); Bilirubin,Total 0.3 mg/dl (0.2-1); Phosphorus 4.2 mg/dl (2.5-4.9); Total Protein 7.1 gm/dl (6.4-8.2)
[2018-06-30 05:44] LABS: iSTAT Allen Test Pass; iSTAT Arterial Blood Gas HCO3 22 meg/L (19-24); iSTAT Arterial Blood Gas pCO2 46 mmHg (35-46); iSTAT Arterial Blood Gas pH 7.29 (7.35-7.45); iSTAT Carbon Dioxide 24 mEq/l (24-31); iSTAT FiO2 30 %; iSTAT Site L Radial
--- NOTE | 2018-06-30 05:57 | Critical Care Progress Note ---
Date of Service June 30, 2018 Assessment & Plan (1) Admitted to intensive care unit: Reason Critically Ill: 18-year-old male with acute alcohol overdose requiring endotracheal intubation for airway protection in the setting of respiratory depression. NEURO - * CAM ICU: NEGATIVE * Sedation: Propofol * Alcohol overdose/Unconscious State: * Greatly improving mentation. * Initial EtOH in the ED of 456.0 mg/dL --> Continues to decline. Plan for extubation once EtOH closer to ~180mg/dL * CT Head WNL. * UDS w/o other significant findings. * No focal neurological deficits appreciated on exam, however limited by EtOH/Sedation. CARDIAC/VASCULAR - * No known h/o Cardiovascular disease. * EKG: NSR @89bpm w/o ST/T-wave changes. QTc 445ms. * Monitor on telemetry. RESPIRATORY - * Acute Respiratory Failure requiring endotracheal intubation: * 2/2 respiratory depression from EtOH. * No infiltrative changes noted on post intubation CXR. * No need for Abx coverage at this point. * AM ABG shows a metabolic acidosis pattern - ??hyperchloremia. GI/NUTRITION - * NPO * OG in place * Prophylaxis: Famotidine RENAL/LYTES - * No significant electrolyte abnormalities appreciated. * Will trend - replace appropriately. * IVF: Normosol@100mL/hr - * Adames in place - Strict I&Os. ENDO - * No h/o DM or Thyroid Dz * BSGs per unit protocol. ISS --> gtt per unit policy. HEME - * Stable H&H ID - * No c/o infectious contribution at this time. LINES/IV ACCESS - * PIVs x2 * Adames * ET Tube DVT PROPHYLAXIS - * Lovenox * SCDs I have personally spent 35 minutes of critical care time in the direct management of this patient. This is a life/limb threatening event. This includes time spent evaluating patient, direct bedside care, chart review, placing orders, interpretation of diagnostic studies, discussion with consultants, patient, and family members, as well as other required patient management activities. This time is exclusive of all separately billable procedures, and teaching time and separate from and in addition to any other critical care service time. Thank you for allowing us to participate in the care of this patient. Please refer to my attending physician's documentation for any further recommendations. (2) Airway compromise: (3) Alcohol overdose: (4) Respiratory failure: (5) No significant past medical history: Supervising Physician Co-Signing Physician Notes I have personally evaluated and examined this patient. I agree with assessment and plan of Stephen Gomez PA-C. Patient was discussed on multidisciplinary rounds, I discussed the condition with the parents as the patient was still intoxicated and sedated with an endotracheal tube. Patient was ultimately able to be extubated without difficulty. He was able to ambulate around the ICU able to urinate and tolerated p.o. intake. Stable for downgrade out of the ICU. Subjective No acute events overnight. Patient continues to require propofol for sedation. Repeat alcohol level shows slow decline. Patient is improving from mentation and able to nod his head yes and no to both simple and complex questions. Family is at bedside and all questions answered appropriately. Plan for early extubation the patient nears an alcohol level of 180 mg/dL. Review of Systems Review of Systems: Unobtainable due to endotracheal tube Physical Exam Physical Exam: VITAL SIGNS - Vital signs and nursing notes were reviewed. GENERAL - 18-year-old male appearing his stated age who is in no acute distress. Intubated and sedated. SKIN - Without rashes. No outward signs of trauma. HEAD - NC/AT. EYES - PERRL with EOMI bilaterally. Sclera anicteric. Palpebral conjunctiva pink and moist with no injection noted. EARS - No deformities of external structures noted on gross examination bilaterally. NOSE - Midline and without cyanosis. Dried epistaxis noted to the nares bilaterally. MOUTH/OROPHARYNX - Endotracheally intubated. Without perioral cyanosis. Buccal mucosa pink and moist and without leukoplakia. Good dentition noted. NECK - Neck with FROM. Supple to palpation. No lymphadenopathy noted. No nuchal rigidity. LUNGS - Chest wall symmetric without accessory muscle use, intercostals retractions, or central cyanosis. Normal vesicular breath sounds CTA B/L. No wheezes, rales, or rhonchi appreciated. CARDIAC - RRR with S1/S2. No murmur, rubs, or gallops appreciated. ABDOMEN - Abdominal contour flat without pulsations or visible masses. BS normoactive all four quadrants. No tenderness, palpable masses, hepatosplenomegaly, or ascites noted. EXTREMITIES - No clubbing or peripheral cyanosis. No pretibial edema present. +3/5 radial, posterior tibial, and dorsalis pedis pulses palpated throughout. NEUROLOGIC - Cranial nerves II through XII grossly intact. Nods his head yes and no to answer both simple and complex questions. Results & Data Vital Signs (Past 12 Hours) Vital Signs Temp Pulse Pulse Resp BP BP Pulse Ox 06/30/18 05:00 91 H 17 103/57 L 96 06/30/18 04:58 91 H 16 96 06/30/18 04:30 88 16 97/52 L 96 06/30/18 04:00 37.6 C H 82 16 107/59 L 100 06/30/18 03:30 88 16 111/58 L 96 06/30/18 03:00 90 16 102/50 L 95 06/30/18 02:30 91 H 16 108/51 L 94 06/30/18 02:00 87 88 17 103/50 L 95 06/30/18 01:30 89 16 102/51 L 94 06/30/18 01:00 90 16 107/45 L 94 06/30/18 00:30 91 H 18 96/53 L 95 06/30/18 00:00 93 H 14 110/58 L 96 06/29/18 23:50 107 H 16 100 06/29/18 23:30 95 H 14 136/83 100 06/29/18 23:23 94 H 06/29/18 23:08 06/29/18 23:07 97 H 17 129/79 100 06/29/18 22:45 37.6 C H 93 H 18 152/86 H 100 06/29/18 22:20 88 14 135/88 100 06/29/18 22:15 89 14 139/94 100 06/29/18 22:10 97 H 19 138/99 100 06/29/18 22:05 14 132/96 100 06/29/18 22:00 14 129/96 100 06/29/18 21:55 14 127/92 100 06/29/18 21:51 14 06/29/18 21:50 21 128/91 100 06/29/18 21:45 14 127/90 100 06/29/18 21:43 13 06/29/18 21:25 90 14 133/89 100 06/29/18 21:20 94 H 20 100 06/29/18 21:15 96 H 14 148/111 H 100 06/29/18 21:10 88 14 100 06/29/18 21:05 106 H 16 98 06/29/18 21:00 124/94 100 06/29/18 20:58 103 H 14 126/89 100 06/29/18 20:57 20 98 06/29/18 20:50 97 H 21 98 06/29/18 20:45 93 H 24 100 06/29/18 20:40 93 H 18 100 06/29/18 20:35 93 H 9 L 99 06/29/18 20:30 97 H 10 L 99 06/29/18 20:26 102 H 22 132/86 96 06/29/18 20:25 102 H 22 98 06/29/18 20:20 104 H 23 96 06/29/18 20:15 118 H 25 H 94 06/29/18 20:10 119 H 15 92 06/29/18 20:05 122 H 8 L 89 L 06/29/18 20:04 110 H 20 99 06/29/18 20:00 111 H 11 L 96 06/29/18 19:55 106 H 12 94 06/29/18 19:51 107 H 17 123/60 92 06/29/18 19:50 37.0 C 109 H 31 H 123/60 95 06/29/18 19:49 112 H 17 95 Pulse Ox 06/30/18 05:00 06/30/18 04:58 06/30/18 04:30 06/30/18 04:00 06/30/18 03:30 06/30/18 03:00 06/30/18 02:30 06/30/18 02:00 06/30/18 01:30 06/30/18 01:00 06/30/18 00:30 06/30/18 00:00 06/29/18 23:50 06/29/18 23:30 06/29/18 23:23 06/29/18 23:08 100 06/29/18 23:07 06/29/18 22:45 06/29/18 22:20 06/29/18 22:15 06/29/18 22:10 06/29/18 22:05 06/29/18 22:00 06/29/18 21:55 06/29/18 21:51 06/29/18 21:50 06/29/18 21:45 06/29/18 21:43 06/29/18 21:25 06/29/18 21:20 06/29/18 21:15 06/29/18 21:10 06/29/18 21:05 06/29/18 21:00 06/29/18 20:58 06/29/18 20:57 06/29/18 20:50 06/29/18 20:45 06/29/18 20:40 06/29/18 20:35 06/29/18 20:30 06/29/18 20:26 06/29/18 20:25 06/29/18 20:20 06/29/18 20:15 06/29/18 20:10 06/29/18 20:05 06/29/18 20:04 06/29/18 20:00 06/29/18 19:55 06/29/18 19:51 06/29/18 19:50 06/29/18 19:49 (1) Alcohol overdose Encounter type: initial encounter Injury intent: undetermined intent Qualified Code(s): T51.94XA - Toxic effect of unspecified alcohol, undetermined, initial encounter (2) Respiratory failure Chronicity: acute Respiratory failure complication: hypoxia Qualified Code(s): J96.01 - Acute respiratory failure with hypoxia
--- NOTE | 2018-06-30 06:30 | Critical Care Progress Note ---
Date of Service June 30, 2018 Assessment & Plan (1) Admitted to intensive care unit: Reason Critically Ill: 18-year-old male with acute alcohol overdose requiring endotracheal intubation for airway protection in the setting of respiratory depression. NEURO - * CAM ICU: NEGATIVE * Sedation: Propofol * Alcohol overdose/Unconscious State: * Greatly improving mentation. * Initial EtOH in the ED of 456.0 mg/dL --> Continues to decline. Plan for extubation once EtOH closer to ~180mg/dL * CT Head WNL. * UDS w/o other significant findings. * No focal neurological deficits appreciated on exam, however limited by EtOH/Sedation. CARDIAC/VASCULAR - * No known h/o Cardiovascular disease. * EKG: NSR @89bpm w/o ST/T-wave changes. QTc 445ms. * Monitor on telemetry. RESPIRATORY - * Acute Respiratory Failure requiring endotracheal intubation: * 2/2 respiratory depression from EtOH. * No infiltrative changes noted on post intubation CXR. * No need for Abx coverage at this point. * AM ABG shows a metabolic acidosis pattern - ??hyperchloremia. GI/NUTRITION - * NPO * OG in place * Prophylaxis: Famotidine RENAL/LYTES - * No significant electrolyte abnormalities appreciated. * Will trend - replace appropriately. * IVF: Normosol@100mL/hr - * Adames in place - Strict I&Os. ENDO - * No h/o DM or Thyroid Dz * BSGs per unit protocol. ISS --> gtt per unit policy. HEME - * Stable H&H ID - * No c/o infectious contribution at this time. LINES/IV ACCESS - * PIVs x2 * Adames * ET Tube DVT PROPHYLAXIS - * Lovenox * SCDs Results & Data Vital Signs (Past 12 Hours) Vital Signs Temp Pulse Pulse Resp BP BP Pulse Ox 06/30/18 06:00 88 16 103/51 L 96 06/30/18 05:00 91 H 17 103/57 L 96 06/30/18 04:58 91 H 16 96 06/30/18 04:30 88 16 97/52 L 96 06/30/18 04:00 37.6 C H 82 16 107/59 L 100 06/30/18 03:30 88 16 111/58 L 96 06/30/18 03:00 90 16 102/50 L 95 06/30/18 02:30 91 H 16 108/51 L 94 06/30/18 02:00 87 88 17 103/50 L 95 06/30/18 01:30 89 16 102/51 L 94 06/30/18 01:00 90 16 107/45 L 94 06/30/18 00:30 91 H 18 96/53 L 95 06/30/18 00:00 93 H 14 110/58 L 96 06/29/18 23:50 107 H 16 100 06/29/18 23:30 95 H 14 136/83 100 06/29/18 23:23 94 H 06/29/18 23:08 06/29/18 23:07 97 H 17 129/79 100 06/29/18 22:45 37.6 C H 93 H 18 152/86 H 100 06/29/18 22:20 88 14 135/88 100 06/29/18 22:15 89 14 139/94 100 06/29/18 22:10 97 H 19 138/99 100 06/29/18 22:05 14 132/96 100 06/29/18 22:00 14 129/96 100 06/29/18 21:55 14 127/92 100 06/29/18 21:51 14 06/29/18 21:50 21 128/91 100 06/29/18 21:45 14 127/90 100 06/29/18 21:43 13 06/29/18 21:25 90 14 133/89 100 06/29/18 21:20 94 H 20 100 06/29/18 21:15 96 H 14 148/111 H 100 06/29/18 21:10 88 14 100 06/29/18 21:05 106 H 16 98 06/29/18 21:00 124/94 100 06/29/18 20:58 103 H 14 126/89 100 06/29/18 20:57 20 98 06/29/18 20:50 97 H 21 98 06/29/18 20:45 93 H 24 100 06/29/18 20:40 93 H 18 100 06/29/18 20:35 93 H 9 L 99 06/29/18 20:30 97 H 10 L 99 06/29/18 20:26 102 H 22 132/86 96 06/29/18 20:25 102 H 22 98 06/29/18 20:20 104 H 23 96 06/29/18 20:15 118 H 25 H 94 06/29/18 20:10 119 H 15 92 06/29/18 20:05 122 H 8 L 89 L 06/29/18 20:04 110 H 20 99 06/29/18 20:00 111 H 11 L 96 06/29/18 19:55 106 H 12 94 06/29/18 19:51 107 H 17 123/60 92 06/29/18 19:50 37.0 C 109 H 31 H 123/60 95 06/29/18 19:49 112 H 17 95 Pulse Ox 06/30/18 06:00 06/30/18 05:00 06/30/18 04:58 06/30/18 04:30 06/30/18 04:00 06/30/18 03:30 06/30/18 03:00 06/30/18 02:30 06/30/18 02:00 06/30/18 01:30 06/30/18 01:00 06/30/18 00:30 06/30/18 00:00 06/29/18 23:50 06/29/18 23:30 06/29/18 23:23 06/29/18 23:08 100 06/29/18 23:07 06/29/18 22:45 06/29/18 22:20 06/29/18 22:15 06/29/18 22:10 06/29/18 22:05 06/29/18 22:00 06/29/18 21:55 06/29/18 21:51 06/29/18 21:50 06/29/18 21:45 06/29/18 21:43 06/29/18 21:25 06/29/18 21:20 06/29/18 21:15 06/29/18 21:10 06/29/18 21:05 06/29/18 21:00 06/29/18 20:58 06/29/18 20:57 06/29/18 20:50 06/29/18 20:45 06/29/18 20:40 06/29/18 20:35 06/29/18 20:30 06/29/18 20:26 06/29/18 20:25 06/29/18 20:20 06/29/18 20:15 06/29/18 20:10 06/29/18 20:05 06/29/18 20:04 06/29/18 20:00 06/29/18 19:55 06/29/18 19:51 06/29/18 19:50 06/29/18 19:49
--- NOTE | 2018-06-30 07:42 | Family Medicine Progress Note ---
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 No prior hx of binge drinking, knew him to have had an occasional beer but not to this extent. Also state that he has had no prior psychiatric hx, though Mom states about 2 weeks ago he called her overwhelmed with school and classes to the point that he was in tears. 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 Alcoholic Intoxication -Pt was admitted to the ICU and intubated to protect his airway -Currently extubated -Blood alcohol level of 456 downtrending to 223 currently. -Head CT with no acute changes -Chest XR with no indication of pneumonitis/aspiration pneumonia -EKG-normal sinus rhythm. -Discharge probable later today. DVT proph: Lovenox, SCDs Dispo: Discharge later today pending continued improvement. 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 No prior hx of binge drinking, no prior psychiatric hx. Mom states about 2 weeks ago he called her overwhelmed with school and classes to the point that he was in tears. 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 Review of Systems Review of Systems: Unobtainable due to cognitive status Physical Exam Physical Exam: General: Pt intubated laying in bed. HEENT: NC/AT Chest: Nontender to palpation. CV: RRR, Normal s1, s2. No murmurs appreciated Resp: Breath sounds clear bilaterally on front. Abdomen: Soft, nondistended. Extremities: No edema on lower extremities bilaterally. Results & Data Vital Signs (Past 12 Hours) Vital Signs Temp Pulse Pulse Resp BP BP Pulse Ox 06/30/18 06:30 89 16 100/48 L 96 06/30/18 06:00 88 16 103/51 L 96 06/30/18 05:00 91 H 17 103/57 L 96 06/30/18 04:58 91 H 16 96 06/30/18 04:30 88 16 97/52 L 96 06/30/18 04:00 37.6 C H 82 16 107/59 L 100 06/30/18 03:30 88 16 111/58 L 96 06/30/18 03:00 90 16 102/50 L 95 06/30/18 02:30 91 H 16 108/51 L 94 06/30/18 02:00 87 88 17 103/50 L 95 06/30/18 01:30 89 16 102/51 L 94 06/30/18 01:00 90 16 107/45 L 94 06/30/18 00:30 91 H 18 96/53 L 95 06/30/18 00:00 93 H 14 110/58 L 96 06/29/18 23:50 107 H 16 100 06/29/18 23:30 95 H 14 136/83 100 06/29/18 23:23 94 H 06/29/18 23:08 06/29/18 23:07 97 H 17 129/79 100 06/29/18 22:45 37.6 C H 93 H 18 152/86 H 100 06/29/18 22:20 88 14 135/88 100 06/29/18 22:15 89 14 139/94 100 06/29/18 22:10 97 H 19 138/99 100 06/29/18 22:05 14 132/96 100 06/29/18 22:00 14 129/96 100 06/29/18 21:55 14 127/92 100 06/29/18 21:51 14 06/29/18 21:50 21 128/91 100 06/29/18 21:45 14 127/90 100 06/29/18 21:43 13 06/29/18 21:25 90 14 133/89 100 06/29/18 21:20 94 H 20 100 06/29/18 21:15 96 H 14 148/111 H 100 06/29/18 21:10 88 14 100 06/29/18 21:05 106 H 16 98 06/29/18 21:00 124/94 100 06/29/18 20:58 103 H 14 126/89 100 06/29/18 20:57 20 98 06/29/18 20:50 97 H 21 98 06/29/18 20:45 93 H 24 100 06/29/18 20:40 93 H 18 100 06/29/18 20:35 93 H 9 L 99 06/29/18 20:30 97 H 10 L 99 06/29/18 20:26 102 H 22 132/86 96 06/29/18 20:25 102 H 22 98 06/29/18 20:20 104 H 23 96 06/29/18 20:15 118 H 25 H 94 06/29/18 20:10 119 H 15 92 06/29/18 20:05 122 H 8 L 89 L 06/29/18 20:04 110 H 20 99 06/29/18 20:00 111 H 11 L 96 06/29/18 19:55 106 H 12 94 06/29/18 19:51 107 H 17 123/60 92 06/29/18 19:50 37.0 C 109 H 31 H 123/60 95 06/29/18 19:49 112 H 17 95 Pulse Ox 06/30/18 06:30 06/30/18 06:00 06/30/18 05:00 06/30/18 04:58 06/30/18 04:30 06/30/18 04:00 06/30/18 03:30 06/30/18 03:00 06/30/18 02:30 06/30/18 02:00 06/30/18 01:30 06/30/18 01:00 06/30/18 00:30 06/30/18 00:00 06/29/18 23:50 06/29/18 23:30 06/29/18 23:23 06/29/18 23:08 100 06/29/18 23:07 06/29/18 22:45 06/29/18 22:20 06/29/18 22:15 06/29/18 22:10 06/29/18 22:05 06/29/18 22:00 06/29/18 21:55 06/29/18 21:51 06/29/18 21:50 06/29/18 21:45 06/29/18 21:43 06/29/18 21:25 06/29/18 21:20 06/29/18 21:15 06/29/18 21:10 06/29/18 21:05 06/29/18 21:00 06/29/18 20:58 06/29/18 20:57 06/29/18 20:50 06/29/18 20:45 06/29/18 20:40 06/29/18 20:35 06/29/18 20:30 06/29/18 20:26 06/29/18 20:25 06/29/18 20:20 06/29/18 20:15 06/29/18 20:10 06/29/18 20:05 06/29/18 20:04 06/29/18 20:00 06/29/18 19:55 06/29/18 19:51 06/29/18 19:50 06/29/18 19:49 Laboratory Results Laboratory Results - last 24 hr 06/29/18 06/29/18 06/29/18 20:13 20:13 20:13 WBC 7.89 RBC 4.85 Hgb 15.0 Hct 41.8 L MCV 86.2 MCH 30.9 MCHC 35.9 RDW Std Deviation 40.3 RDW Coeff of Sumanth 12.8 Plt Count 232 MPV 9.7 Immature Gran % (Auto) Neut % (Auto) Lymph % (Auto) [place] % (Auto) Eos % (Auto) Baso % (Auto) Immature Gran # (Auto) Neut # (Auto) Lymph # (Auto) [place] # (Auto) Eos # (Auto) Baso # (Auto) PT INR APTT PTT Ratio Sample Site POC pH POC pCO2 POC pO2 POC HCO3 POC Total CO2 POC Base Excess POC ABG O2 Sat Jensen Test O2 Delivery Device POC O2 Rate Minute Ventilation POC FiO2 Tidal Volume PEEP Sodium 141 Potassium 3.5 Chloride 112 H Carbon Dioxide 23 Anion Gap 6.0 BUN 12 Creatinine 0.99 Est Cr Clr Drug Dosing 134.3 Est GFR ( Amer) 126.5 Est GFR (Non-Af Amer) 109.2 BUN/Creatinine Ratio 12.4 Glucose 125 H POC Glucose Calcium 8.9 Phosphorus Magnesium Total Bilirubin 0.5 Direct Bilirubin AST 20 ALT 29 Alkaline Phosphatase 69 Total Protein 8.0 Albumin 4.2 Globulin 3.8 Albumin/Globulin Ratio 1.1 Lipase Nasal Screen MRSA (PCR) Urine Opiates Screen Ur Methadone, Qual Urine Barbiturates Ur Phencyclidine (PCP) U Amphetamin/Meth Scrn MDMA (Ecstasy) Screen U Benzodiazepines Scrn Ur Cocaine Metabolite U Marijuana (THC) Screen Ethyl Alcohol mg/dL 456.0 H 06/29/18 06/29/18 06/29/18 21:30 23:00 23:36 WBC RBC Hgb Hct MCV MCH MCHC RDW Std Deviation RDW Coeff of Sumanth Plt Count MPV Immature Gran % (Auto) Neut % (Auto) Lymph % (Auto) [place] % (Auto) Eos % (Auto) Baso % (Auto) Immature Gran # (Auto) Neut # (Auto) Lymph # (Auto) [place] # (Auto) Eos # (Auto) Baso # (Auto) PT INR APTT PTT Ratio Sample Site POC pH POC pCO2 POC pO2 POC HCO3 POC Total CO2 POC Base Excess POC ABG O2 Sat Jensen Test O2 Delivery Device POC O2 Rate Minute Ventilation POC FiO2 Tidal Volume PEEP Sodium Potassium Chloride Carbon Dioxide Anion Gap BUN Creatinine Est Cr Clr Drug Dosing Est GFR ( Amer) Est GFR (Non-Af Amer) BUN/Creatinine Ratio Glucose POC Glucose 110 H Calcium Phosphorus Magnesium Total Bilirubin Direct Bilirubin AST ALT Alkaline Phosphatase Total Protein Albumin Globulin Albumin/Globulin Ratio Lipase Nasal Screen MRSA (PCR) Negative Urine Opiates Screen Neg Ur Methadone, Qual Neg Urine Barbiturates Neg Ur Phencyclidine (PCP) Neg U Amphetamin/Meth Scrn Neg MDMA (Ecstasy) Screen Neg U Benzodiazepines Scrn Neg Ur Cocaine Metabolite Neg U Marijuana (THC) Screen Neg Ethyl Alcohol mg/dL 06/30/18 06/30/18 06/30/18 00:46 00:53 04:18 WBC 5.10 RBC 4.75 Hgb 14.5 Hct 41.3 L MCV 86.9 MCH 30.5 MCHC 35.1 RDW Std Deviation 41.3 RDW Coeff of Sumanth 13.0 Plt Count 216 MPV 9.4 Immature Gran % (Auto) 0.2 Neut % (Auto) 57.8 Lymph % (Auto) 36.7 [place] % (Auto) 5.3 Eos % (Auto) 0.0 Baso % (Auto) 0.0 Immature Gran # (Auto) 0.01 Neut # (Auto) 2.95 Lymph # (Auto) 1.87 [place] # (Auto) 0.27 Eos # (Auto) 0.00 Baso # (Auto) 0.00 PT INR APTT PTT Ratio Sample Site POC pH POC pCO2 POC pO2 POC HCO3 POC Total CO2 POC Base Excess POC ABG O2 Sat Jensen Test O2 Delivery Device POC O2 Rate Minute Ventilation POC FiO2 Tidal Volume PEEP Sodium 146 H Potassium 4.2 D Chloride 118 H Carbon Dioxide 23 Anion Gap 5.0 BUN 9 Creatinine 0.84 Est Cr Clr Drug Dosing 144.8 Est GFR ( Amer) 146.1 Est GFR (Non-Af Amer) 126.0 BUN/Creatinine Ratio 11.1 Glucose 128 H POC Glucose Calcium 7.7 L Phosphorus Magnesium 2.4 Total Bilirubin Direct Bilirubin AST ALT Alkaline Phosphatase Total Protein Albumin Globulin Albumin/Globulin Ratio Lipase Nasal Screen MRSA (PCR) Urine Opiates Screen Ur Methadone, Qual Urine Barbiturates Ur Phencyclidine (PCP) U Amphetamin/Meth Scrn MDMA (Ecstasy) Screen U Benzodiazepines Scrn Ur Cocaine Metabolite U Marijuana (THC) Screen Ethyl Alcohol mg/dL 349.0 H 06/30/18 06/30/18 06/30/18 04:18 04:18 04:18 WBC RBC Hgb Hct MCV MCH MCHC RDW Std Deviation RDW Coeff of Sumanth Plt Count MPV Immature Gran % (Auto) Neut % (Auto) Lymph % (Auto) [place] % (Auto) Eos % (Auto) Baso % (Auto) Immature Gran # (Auto) Neut # (Auto) Lymph # (Auto) [place] # (Auto) Eos # (Auto) Baso # (Auto) PT 11.5 INR 1.1 APTT 25.1 PTT Ratio 0.9 Sample Site POC pH POC pCO2 POC pO2 POC HCO3 POC Total CO2 POC Base Excess POC ABG O2 Sat Jensen Test O2 Delivery Device POC O2 Rate Minute Ventilation POC FiO2 Tidal Volume PEEP Sodium 144 Potassium 4.1 Chloride 116 H Carbon Dioxide 24 Anion Gap 4.0 BUN 8 Creatinine 0.88 Est Cr Clr Drug Dosing 138.3 Est GFR ( Amer) 143.3 Est GFR (Non-Af Amer) 123.7 BUN/Creatinine Ratio 9.2 L Glucose 118 H POC Glucose Calcium 8.0 L Phosphorus 4.2 Magnesium 2.4 Total Bilirubin 0.3 Direct Bilirubin < 0.1 AST 20 ALT 25 Alkaline Phosphatase 59 Total Protein 7.1 Albumin 3.8 Globulin Albumin/Globulin Ratio Lipase 61 L Nasal Screen MRSA (PCR) Urine Opiates Screen Ur Methadone, Qual Urine Barbiturates Ur Phencyclidine (PCP) U Amphetamin/Meth Scrn MDMA (Ecstasy) Screen U Benzodiazepines Scrn Ur Cocaine Metabolite U Marijuana (THC) Screen Ethyl Alcohol mg/dL 305.0 H 06/30/18 06/30/18 05:30 09:17 WBC RBC Hgb Hct MCV MCH MCHC RDW Std Deviation RDW Coeff of Sumanth Plt Count MPV Immature Gran % (Auto) Neut % (Auto) Lymph % (Auto) [place] % (Auto) Eos % (Auto) Baso % (Auto) Immature Gran # (Auto) Neut # (Auto) Lymph # (Auto) [place] # (Auto) Eos # (Auto) Baso # (Auto) PT INR APTT PTT Ratio Sample Site L Radial POC pH 7.29 L POC pCO2 46 POC pO2 147 H POC HCO3 22 POC Total CO2 24 POC Base Excess -4.0 POC ABG O2 Sat 99.0 H Jensen Test Pass O2 Delivery Device Ventilator POC O2 Rate 16 Minute Ventilation 7.9 POC FiO2 30 Tidal Volume 500 PEEP 5 Sodium Potassium Chloride Carbon Dioxide Anion Gap BUN Creatinine Est Cr Clr Drug Dosing Est GFR ( Amer) Est GFR (Non-Af Amer) BUN/Creatinine Ratio Glucose POC Glucose Calcium Phosphorus Magnesium Total Bilirubin Direct Bilirubin AST ALT Alkaline Phosphatase Total Protein Albumin Globulin Albumin/Globulin Ratio Lipase Nasal Screen MRSA (PCR) Urine Opiates Screen Ur Methadone, Qual Urine Barbiturates Ur Phencyclidine (PCP) U Amphetamin/Meth Scrn MDMA (Ecstasy) Screen U Benzodiazepines Scrn Ur Cocaine Metabolite U Marijuana (THC) Screen Ethyl Alcohol mg/dL 223.0 H Medications Administered Home Medications Unobtainable 06/29/18 [History Confirmed 06/29/18] Active Medications Albuterol (Duoneb) 3 ml INH Q4H PRN PRN Reason: Dyspnea Stop: 07/29/18 23:07 Enoxaparin Sodium (Lovenox) 40 mg SQ Q24H JUAN Stop: 07/30/18 08:59 Last Admin: 06/30/18 08:51 Dose: 40 mg Documented by: Famotidine 20 mg/ Syringe 5 mls @ 2.5 mls/min IV Q12 JUAN Stop: 07/29/18 23:07 Last Admin: 06/30/18 08:51 Dose: 2.5 mls/min Documented by: Propofol (Diprivan) 1,000 mg in 100 mls @ 0 mls/hr IV .Q0M JUAN; Protocol Stop: 07/02/18 23:07 Last Titration: 06/30/18 08:15 Dose: 0 mcg/kg/min, 0 mls/hr Documented by: Parenteral Electrolytes (Normosol-R) 1,000 mls @ 100 mls/hr IV .Q10H JUAN Stop: 07/30/18 02:44 Last Infusion: 06/30/18 06:21 Dose: 100 mls/hr Documented by: Miscellaneous (Icu Protocol For Hyperglycemia) 1 ea N/A PRN PRN; Protocol PRN Reason: Hyperglycemia Protocol Stop: 07/01/18 23:07 (1) Alcohol overdose Encounter type: initial encounter Injury intent: undetermined intent Qualified Code(s): T51.94XA - Toxic effect of unspecified alcohol, undetermined, initial encounter
[2018-06-30] MEDS ORDERED: ENOXAPARIN INJ 40 MG/0.4 ML SYR SQ SCH (09:00)
[2018-06-30 13:54] VITALS: TEMP 98.6
[2018-06-30 14:48] VITALS: O2SAT 97
[2018-06-30] MEDS ORDERED: ONDANSETRON 4 MG OD TAB PO PRN (15:49)
[2018-06-30] MEDS ORDERED: ACETAMINOPHEN 325 MG TAB PO PRN (15:51)
[2018-06-30] MEDS ORDERED: ONDANSETRON 4 MG OD TAB ONE (15:52)
[2018-06-30] MEDS ORDERED: ACETAMINOPHEN 325 MG TAB ONE (15:54)
[2018-06-30 16:50] VITALS: BP 100/48; PULSE 89
--- NOTE | 2018-06-30 16:55 | Discharge Summary ---
Date of Service June 30, 2018 Admission HPI Per Admitting Provider As noted above, the patient presented to the emergency department via EMS after being found unresponsive in a bar. His alcohol level was 456, and as it became apparent that the patient was not going to be able to protect his airway, he was electively intubated by Dr. Ramirez in the ED for airway protection. Admission Exam Per Admitting Provider The patient is presently intubated and nonresponsive. Normocephalic and atraumatic, lying in bed. HEENT--PERRL, EOMI, mucous membranes and oropharynx dry. Neck-- No JVD. No bruits. Thyroid normal, trachea midline, no adenopathy. Heart--normal S1 and S2. No murmurs, rubs or gallops. Lungs--few coarse breath sounds bilaterally. On ventilator. Abdomen--normal bowel sounds and soft. Nontender. Nondistended, no hernias or masses, no organomegaly. Extremities--no cyanosis or clubbing. No edema. There are good distal pulses b/l. Dermatologic--normal skin turgor, normal color, no abnormal lymph nodes, no rash. Neurologic--deferred. Rheumatologic-deferred Psychiatric--deferred Principal Diagnosis Alcohol Overdose Alcohol Intoxication Discharge Exam General: Pt intubated laying in bed. HEENT: NC/AT Chest: Nontender to palpation. CV: RRR, Normal s1, s2. No murmurs appreciated Resp: Breath sounds clear bilaterally on front. Abdomen: Soft, nondistended. Extremities: No edema on lower extremities bilaterally. 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 No prior hx of binge drinking, knew him to have had an occasional beer but not to this extent. Also state that he has had no prior psychiatric hx, though Mom states about 2 weeks ago he called her overwhelmed with school and classes to the point that he was in tears. 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 Pt was admitted on June 29 2018 and discharged on June 30 2018. Alcoholic Intoxication -Pt was admitted to the ICU and intubated to protect his airway -Was extubated before discharge. -Had ambulation trials with pain and voided without problems. -Advised use of OTC tylenol for his pain on discharge. -Was nauseous and received Zofran. Discharged with 4 Zofran pills for use as needed for nausea during the next few days. -Blood alcohol level of 456 on admission and downtrending to 223 when he was extubated. -Head CT with no acute changes -Chest XR with no indication of pneumonitis/aspiration pneumonia -EKG-normal sinus rhythm. Total Time Total Time Spent Total Time Spent (In Minutes): >30 Discharge Plan Discharge Items Patient Disposition: Home - Self-Care Reason For Visit: INTUBATED FOR AIRWAY PROTECTION,ALCOHOL OVERDOSE Discharge Diagnosis: Alcoholic intoxication Alcohol Overdose Discharge Goals: Decrease discomfort and Improve disease control Activity: Per 'Additional Instructions' section Non-emergency contact: Primary Care Provider Call non-emergency contact if: your symptoms worsen Follow-up/Referrals: PCP,NO [Primary Care Provider] - Diet: Regular Addtl Provider Instructions: Alcohol Intoxication -You were hospitalized because you were so intoxicated from alcohol ingestion that it made you lose consciousness. -As a result, you had to be intubated to help with breathing. -Seeing the effects of your consumption of alcohol, it may be prudent to stop the consumption of alcohol until the age of 21 and even then, to significantly decrease the amount you consume. -You will likely have a hangover for the next few days. We will discharge you with some nausea pills called Zofran and it is ok to use over the counter tylenol for your headaches and body soreness. -Please followup with your primary care doctor for a followup visit in the next week. Prescriptions: New ondansetron HCl [Zofran] 4 mg tablet 4 mg PO ONCE PRN (Reason: nausea and vomiting) 4 Days Qty: 4 RF: 0 Continued Unobtainable RF: 0 Stand-Alone Forms: My [facility] AddisTeraFirrma Krames/Other Patient Handouts: ED Overdose Alcohol, ED Intoxication Alcohol Discharge Orders: Discharge Order (Routine); Ordered 06/30/18 Ordered By: Bisi Lopez Admission Data Admit Date/Time: 06/29/18 21:37 Attending Provider: Kj Lemons Admit Provider: Bubba Nj Primary Care Provider: PCP,NO Other Providers: Bubba Nj ; Jayme Andrea Service: Intensive Care Unit Other Interventions: Discharge Summary Assessment (RN) Last Done: 06/30/18 16:45 DC Date/Time DO NOT enter until pt leaves facility: 06/30/18 17:25 Supervising Physician Co-Signing Physician Notes I personally examined the patient and verified all sosa points of history and exam, discussed case, and agree with decision making with Dr Lopez feeling better, somewhat sheepish about his admission. family present and supportive vitals noted nad breahting unlabored no pallor or icterus, no neuro deficits. mentation appears intact EtOH overdose w respiratory failure due to inability to protect airway -now extubated, improving. stable for discharge in family's care. discussed secondary prevention as far as safe choices/etc. otherwise as above pt/family expressed appreciation of care
== END 2018-06-30 17:25 | disposition home or self-care (01) | DRG 917 ==
LOC: ED 19:42 → 1E 21:37 → SUATTDRO 21:37 → 1E 22:25